=== PATIENT | female | born 1985 | race Caucasian/White ===

== ENCOUNTER 2018-03-11 10:44 | Emergency (ER) | payer MEDICARE ==
[~2018-03-11] VITALS: Ht 162.6 cm; Wt 73.5 kg
[2018-03-11 11:00] VITALS: BP_SYST 126
[2018-03-11 11:55] VITALS: BP_SYST 126
== END 2018-03-11 11:55 | disposition home or self-care (01) ==
LOC: SED 10:44
DX: L04.0 Acute lymphadenitis of face, head and neck (principal); R03.0 Elevated blood-pressure reading, without diagnosis of hypertension
CPT/HCPCS: 36415; 86403; 87081; 99284

== ENCOUNTER 2019-03-21 21:35 | Emergency (ER) | payer BC, MEDICARE, OTHER ==
[~2019-03-21] VITALS: Ht 162.6 cm; Wt 79.4 kg
[2019-03-21 22:06] VITALS: BP_SYST 143
--- NOTE | 2019-03-21 22:12 | NUR ---
Patient triaged and placed in waiting room. VSS and patient appears in no acute distress at this time. Accompanied by self, awaiting available bed, and MD notified of need for MSE.
== END 2019-03-22 00:20 | disposition left against medical advice (07) ==
LOC: SED 21:35
DX: L02.416 Cutaneous abscess of left lower limb (principal); Z53.21 Procedure and treatment not carried out due to patient leaving prior to being seen by health care provider